=== PATIENT | female | born 1980 | race Caucasian/White ===

== ENCOUNTER → 2017-01-28 | Outpatient (CLI) | payer BC ==
[~2017-01-28] MED LIST: NO HOME MEDICATIONS; NORCO 325 MG-51 TAB PO
== END ==
LOC: BHSO 11:03
DX: F31.73 Bipolar disorder, in partial remission, most recent episode manic (principal)

== ENCOUNTER → 2017-06-03 | Outpatient (CLI) | payer BC | LOC: BHSO 10:55 | DX: F31.73 Bipolar disorder, in partial remission, most recent episode manic (principal) ==

== ENCOUNTER → 2017-09-02 | Outpatient (CLI) | payer SELFPAY | LOC: BHSO 11:02 | DX: F41.1 Generalized anxiety disorder (principal) ==

== ENCOUNTER 2021-10-30 06:46 | Day surgery (SDC) | payer BC ==
[~2021-10-30] VITALS: Ht 160 cm; Wt 63.7 kg
[2021-10-30 07:09] VITALS: BP 118/82; PULSE 80; TEMP 97.9
[2021-10-30] MEDS ORDERED: CELEXA 20MG20 MG/TAB PO (07:13)
[2021-10-30] MEDS ORDERED: ATARAX 25MG25 MG/TAB PO (07:13)
--- NOTE | 2021-10-30 08:25 | NUR ---
0825 PT TRANSPORTED PER CART FROM GI SUITE TO BAY 4 ACCOMPANIED BY IVONNE RN. PATIENT AMBULATED FROM CART TO CHAIR WITH 2 ASSIT. STEADY GAIT. PATIENT'S MOTHER IN ROOM. PATIENT GIVEN WATER TO DRINK.
[2021-10-30 08:30] VITALS: BP 109/82; PULSE 72; TEMP 97.7
--- NOTE | 2021-10-30 08:35 | NUR ---
VSS ON ROOM AIR. PATIENT TOLERATES FOOD AND DRINK WITHOUT PROBLEMS. SPEAKS WITH MOTHER. 0845 SPEAKS WITH PATIENT AND MOTHER. VSS ON ROOM AIR 0850 IV DC'D WITHOUT PROBLEMS. DISCHARGE INSTRUCTIONS GIVEN VERBAL AND DISCHARGE PACKET PROVIDED. QUESTIONS ANSWERED AND PATIENT VOICED UNDERSTANDING. PATIENT CHANGES INTO STREET CLOTHES. 0900 PATIENT DISMISSED PER WHEEL CHAIR ACCOMPANIED BY IVONNE RN. PATIENT MOTHER DRIVING.
[2021-10-30 08:45] VITALS: BP 115/78; PULSE 65
[2021-10-30 08:56] VITALS: BP 107/78; PULSE 58
== END 2021-10-30 09:00 | disposition home or self-care (01) ==
LOC: SDCO 06:46
DX: Z12.11 Encounter for screening for malignant neoplasm of colon (principal); F41.9 Anxiety disorder, unspecified; F32.A Depression, unspecified; Z79.899 Other long term (current) drug therapy; Z86.010 Personal history of colon polyps; Z83.71 Family history of colonic polyps; Z87.891 Personal history of nicotine dependence
CPT/HCPCS: J2704; J7120